=== PATIENT | female | born 1960 ===

== ENCOUNTER 2023-06-19 10:45 | Outpatient (CLI) | payer OTHER ==
[~2023-06-19 10:45] MED LIST: PROTONIX40 MG
== END 2023-06-19 10:50 | disposition home or self-care (01) ==
LOC: SONOGRAMA 10:45
PROVIDERS: ATTEND Physical Medicine & Rehabilitation Hospice and Palliative Medicine
DX: M06.9 Rheumatoid arthritis, unspecified (principal); R22.9 Localized swelling, mass and lump, unspecified; Z88.4 Allergy status to anesthetic agent